=== PATIENT | male | born 2000 | race Two or more races ===

== ENCOUNTER 2024-06-29 18:13 | Emergency (ER) | payer OTHER ==
[~2024-06-29] VITALS: Ht 177.8 cm; Wt 98.6 kg
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
[2024-06-29] MEDS ORDERED: HYDR-4902 PO (19:33)
[2024-06-29] MEDS ORDERED: CYCL-837 PO (19:33)
[2024-06-29 22:00] VITALS: BP 138/54; PULSE 66; RESP 16; TEMP 98.1; O2SAT 98
== END 2024-06-29 22:19 | disposition home or self-care (01) ==
LOC: ER 18:13
DX: S20.212A Contusion of left front wall of thorax, initial encounter (principal); S80.02XA Contusion of left knee, initial encounter; E66.9 Obesity, unspecified; R51.9 Headache, unspecified; Z88.0 Allergy status to penicillin; Z88.6 Allergy status to analgesic agent; V89.2XXA Person injured in unspecified motor-vehicle accident, traffic, initial encounter; Y93.I9 Activity, other involving external motion; Y92.488 Other paved roadways as the place of occurrence of the external cause; Y99.8 Other external cause status
CPT/HCPCS: 70450; 71045; 73562